=== PATIENT | female | born 1980 | race Caucasian/White ===

== ENCOUNTER 2017-03-23 11:36 | Emergency (ER) | payer BC ==
[~2017-03-23] VITALS: Ht 160 cm; Wt 80.7 kg
[2017-03-23] MEDS ORDERED: NORCO 5-325 TA1 EACH PO (11:51)
[2017-03-23 12:52] VITALS: BP 130/78
== END 2017-03-23 12:52 | disposition home or self-care (01) ==
LOC: ER 11:36
DX: M25.511 Pain in right shoulder (principal); M32.9 Systemic lupus erythematosus, unspecified; Z91.040 Latex allergy status